=== PATIENT | female | born 1985 | race Hispanic/Latino ===

== ENCOUNTER 2017-05-02 11:43 | Emergency (ER) | payer OTHER ==
[2017-05-02 11:54] VITALS: BMI 27.4
[2017-05-02 12:07] VITALS: BP 117/73; PULSE 77; RESP 19; TEMP 98.2; O2SAT 100
[2017-05-02] MEDS ORDERED: Lidocaine 5% Patch TD STA (12:17)
--- NOTE | 2017-05-02 12:24 | ED PDOC ---
HPI: Back Time Seen by Provider: 05/02/17 11:52 Chief Complaint (Nursing): Back Pain Chief Complaint (Provider): Back Pain History Per: Patient History/Exam Limitations: no limitations Onset/Duration Of Symptoms: Days (x1) Current Symptoms Are (Timing): Still Present Previous Symptoms: Back Pain Additional Complaint(s): Ambar is a 32 y/o female who presents to the ED complaining of left-sided low back pain since 2AM this morning, after she helped move someone who is bed- bound. Patient had leaned hard during while moving the person and felt a pain on the left side. Of note, she has a history of herniated discs in the past. Pain is severe, non-radiating, and localized to the lumbosacral area. No associated saddle anesthesia, trouble urinating, hematuria or blood with urination, incontinence of urine or stool, or fever. Has not taken any medications for pain relief. PMD: [facility] Past Medical History Reviewed: Historical Data, Nursing Documentation, Vital Signs Vital Signs: Last Vital Signs Temp 98.2 F 05/02/17 12:03 Pulse 77 05/02/17 12:03 Resp 19 05/02/17 12:03 BP 117/73 05/02/17 12:03 Pulse Ox 100 05/02/17 12:03 - Medical History PMH: Arthritis, Gastritis Other PMH: Herniated discs - Surgical History Surgical History: (x 1) - Family History Family History: States: Unknown Family Hx - Home Medications Home Medications: Ambulatory Orders Medication Instructions Recorded Omeprazole [Prilosec] 20 mg PO DAILY #30 ecc 11/02/15 Cyclobenzaprine [Flexeril] 10 mg PO TID PRN 11/26/15 Cyclobenzaprine [Cyclobenzaprine 10 mg PO TID #30 tab 05/02/17 HCl] Lidocaine 5% [Lidoderm] 1 ea TD DAILY #10 patch 05/02/17 Naproxen [Naprosyn] 500 mg PO BID PRN #20 tablet 05/02/17 - Allergies Allergies/Adverse Reactions: Allergies Allergy/AdvReac Type Severity Reaction Status Date / Time No Known Allergies Allergy Verified 11/26/15 18:40 Review of Systems ROS Statement: Except As Marked, All Systems Reviewed And Found Negative Constitutional: Negative for: Fever, Chills Genitourinary Female: Negative for: Dysuria, Frequency, Incontinence, Hematuria Musculoskeletal: Positive for: Back Pain Neurological: Negative for: Numbness Physical Exam - Reviewed Nursing Documentation Reviewed: Yes Vital Signs Reviewed: Yes - Physical Exam Appears: Positive for: No Acute Distress, Uncomfortable (moderate discomfort) Head Exam: Positive for: ATRAUMATIC, NORMAL INSPECTION, NORMOCEPHALIC Skin: Positive for: Normal Color, Warm, Dry Eye Exam: Positive for: EOMI, Normal appearance, PERRL Neck: Positive for: Normal, Painless ROM, Supple Cardiovascular/Chest: Positive for: Regular Rate, Rhythm. Negative for: Murmur Respiratory: Positive for: Normal Breath Sounds. Negative for: Accessory Muscle Use, Respiratory Distress Pulses-Radial (L): 2+ Pulses-Radial (R): 2+ Gastrointestinal/Abdominal: Positive for: Normal Exam, Soft. Negative for: Tenderness Back: Positive for: Normal Inspection, Decreased ROM (of spine due to pain), Other (Palpable tenderness in left lumbosacral area) Extremity: Positive for: Normal ROM. Negative for: Pedal Edema, Deformity, Other (Straight leg lift test bilaterally) Neurologic/Psych: Positive for: Alert, Oriented, Motor/Sensory Deficits (5/5 motor strength in upper and lower extremities, no sensory deficits) - ECG O2 Sat by Pulse Oximetry: 100 (RA) Pulse Ox Interpretation: Normal Medical Decision Making Medical Decision Making: Time: 12:16 Initial Plan: --Urine --Urine dipstick --Lidoderm TD --Toradol 60 mg IM --Valium 5 mg PO --Pending reevaluation Scribe Attestation: Documented by Layla Rios, acting as a scribe for Hailey Koroma MD Provider Scribe Attestation: All medical record entries made by the Scribe were at my direction and personally dictated by me. I have reviewed the chart and agree that the record accurately reflects my personal performance of the history, physical exam, medical decision making, and the department course for this patient. I have also personally directed, reviewed, and agree with the discharge instructions and disposition. 1.15p - patient's feeling better though she is still in pain. Advised to followup in outpatient with rx for NSAIDs, Lidoderm and Flexeril Disposition - Clinical Impression Clinical Impression: Muscle spasm - Patient ED Disposition Is Patient to be Admitted: No Doctor Will See Patient In The: Office Counseled Patient/Family Regarding: Diagnosis, Need For Followup - Disposition Referrals: [facility] [Outside] [facility] [Outside] Disposition: Routine/Home Disposition Time: 13:35 Condition: IMPROVED Prescriptions: Cyclobenzaprine [Cyclobenzaprine HCl] 10 mg PO TID #30 tab Lidocaine 5% [Lidoderm] 1 ea TD DAILY #10 patch Naproxen [Naprosyn] 500 mg PO BID PRN #20 tablet PRN Reason: Pain, Moderate (4-7) Forms: [facility] (Divehi) Print Language: PORTUGUESE - POA Present On Arrival: Falls Or Trauma
[2017-05-02] MEDS ORDERED: Lidocaine 5% Patch TD ONE (12:29)
== END 2017-05-02 14:16 | disposition home or self-care (01) ==
LOC: H.ER 11:43
DX: M62.838 Other muscle spasm (principal); Z74.01 Bed confinement status
CPT/HCPCS: 81025; 96372; 99282; J1885